=== PATIENT | male | born 1985 | race Two or more races ===

== ENCOUNTER 2019-12-23 02:42 | Emergency (ER) | payer MEDICAID ==
[~2019-12-23] VITALS: Ht 188 cm; Wt 136.1 kg
[2019-12-23 02:50] VITALS: BP 140/80
[2019-12-23 05:30] VITALS: BP 140/80
--- NOTE | 2019-12-25 21:07 | Emergency Room Report ---
History of Present Illness General Chief Complaint: Behavioral Complaint Source: Patient Present Illness HPI 34-year-old male presents ED for evaluation. Brought in by EMS from [place]. Patient discharged from [facility]. Called 911. States that he needs to see a psychiatrist. Denies SI or HI. Denies hearing voices. Denies feeling depressed. Denies alcohol or drug use. States that he wants to sleep. Will not provide history on what medications he takes. No other aggravating relieving factors. Denies any other associated symptoms Allergies: Coded Allergies: No Known Allergies (Unverified , 12/23/19) COVID-19 Screening Contact w/high risk pt: No Recent Travel to affected area: No Experienced COVID-19 symptoms?: No Patient History Past Medical History: psych hx Past Surgical History: none Pertinent Family History: none Social History: Denies: smoking, alcohol use, drug use Immunizations: UTD Reviewed Nursing Documentation: PMH: Agreed; PSxH: Agreed Nursing Documentation-PMH Past Medical History: No History, Except For History Of Psychiatric Problem: Yes - depression Review of Systems All Other Systems: negative except mentioned in HPI Physical Exam Vital Signs Date Time Temp Pulse Resp B/P (MAP) Pulse Ox O2 Delivery O2 Flow Rate FiO2 12/23/19 02:43 98.2 80 19 140/80 (100) 99 Room Air Sp02 EP Interpretation: reviewed, normal General Appearance: no apparent distress, alert, GCS 15, non-toxic Head: normocephalic, atraumatic Eyes: bilateral eye normal inspection, bilateral eye PERRL ENT: hearing grossly normal, normal pharynx, no angioedema, normal voice Neck: full range of motion, supple/symm/no masses Respiratory: chest non-tender, lungs clear, normal breath sounds, speaking full sentences Cardiovascular #1: regular rate, rhythm, no edema Cardiovascular #2: 2+ carotid (R), 2+ carotid (L), 2+ radial (R), 2+ radial (L) , 2+ dorsalis pedis (R), 2+ dorsalis pedis (L) Gastrointestinal: normal bowel sounds, non tender, soft, non-distended, no guarding, no rebound Rectal: deferred Genitourinary: normal inspection, no CVA tenderness Musculoskeletal: back normal, normal range of motion, gait/station normal, non- tender Neurologic: alert, motor strength/tone normal, oriented x3, sensory intact, responsive, speech normal Psychiatric: judgement/insight normal, memory normal, mood/affect normal, no suicidal/homicidal ideation Reflexes: 3+ bicep (R), 3+ bicep (L), 3+ tricep (R), 3+ tricep (L), 3+ knee (R) , 3+ knee (L) Lymphatic: no adenopathy Medical Decision Making Diagnostic Impression: Primary Impression: Behavioral change ER Course Hospital Course 34 yo M requeting to see a psychiatrist. denies SI or HI or hearing voices. Clinical course Patient placed on stretcher. After initial history physical exam reveals male in no acute distress. Maintaining good eye contact. Affect normal. No SI or HI. Patient not danger to self or others. Patient requesting to see a psychiatrist primarily stating that he needs "a place to stay". I see no reason for emergent psychiatric evaluation. I allow the patient to sleep here until the morning. Will provide mental health referrals. In the morning patient alert oriented x3. When patient is handed his discharge papers he became very agitated and combative. Patient required escort by security I will provide [facility] referrals Diagnosis - behavioral change stable and discharged to home. Followup with PMD/psych. Return to ED if symptoms recur or worsen Last Vital Signs Date Time Temp Pulse Resp B/P (MAP) Pulse Ox O2 Delivery O2 Flow Rate FiO2 12/23/19 05:30 98.2 80 19 140/80 99 Room Air Status: improved Disposition: HOME, SELF-CARE Condition: Stable Referrals: [facility] - Peds ER - Patient Instructions: Self-Destructive Behavior Tomas Acevedo MD Dec 25, 2019 21:07
== END 2019-12-23 05:36 | disposition home or self-care (01) ==
LOC: EDBD 02:42 → EMR 03:05
DX: R46.89 Other symptoms and signs involving appearance and behavior (principal); F32.9 Major depressive disorder, single episode, unspecified
CPT/HCPCS: 99282